=== PATIENT | female | born 1975 | race Caucasian/White ===

== ENCOUNTER → 2016-06-25 | Outpatient (CLI) | payer BC ==
[2016-06-25 18:29] LABS: HEMOGLOBIN 13.5 gm/dl (12.3-15.3); RED BLOOD COUNT 4.49 M/UL (4.00-5.10); WHITE BLOOD COUNT 10.7 K/UL (4.5-11.0)
[2016-06-25 18:45] LABS: BUN/CREATININE RATIO 23 (0-10)
== END ==
LOC: LAB 18:09
PROVIDERS: Specialist/Technologist Athletic Trainer
DX: R10.30 Lower abdominal pain, unspecified (principal)
CPT/HCPCS: 80053; 85025

== ENCOUNTER 2016-08-23 21:05 | Emergency (ER) | payer OTHER ==
[2016-08-23 22:07] LABS: RED BLOOD COUNT 4.61 M/UL (4.00-5.10); WHITE BLOOD COUNT 11.9 K/UL (4.5-11.0)
[2016-08-23 22:41] LABS: BUN/CREATININE RATIO 28 (0-10)
== END 2016-08-24 01:22 | disposition home or self-care (01) ==
LOC: ER1 21:05
PROVIDERS: Emergency Medicine
DX: S13.4XXA Sprain of ligaments of cervical spine, initial encounter (principal); S33.5XXA Sprain of ligaments of lumbar spine, initial encounter; S20.212A Contusion of left front wall of thorax, initial encounter; R10.32 Left lower quadrant pain; E11.9 Type 2 diabetes mellitus without complications; I10 Essential (primary) hypertension; V43.52XA Car driver injured in collision with other type car in traffic accident, initial encounter; Y93.89 Activity, other specified; Y92.410 Unspecified street and highway as the place of occurrence of the external cause
CPT/HCPCS: 36415; 70450; 71260; 72070; 72100; 72125; 80053; 81001; 84484; 84703; 85025; 96361; 96374; 99284; J2405; J7030; J7050; Q9962

== ENCOUNTER 2020-04-06 10:23 | Emergency (ER) | payer BC, OTHER ==
[2020-04-06 11:33] LABS: HEMOGLOBIN 12.2 gm/dl (12.3-15.3); RED BLOOD COUNT 4.5 M/UL (4.00-5.10); WHITE BLOOD COUNT 8.1 K/UL (4.5-11.0)
[2020-04-06 12:01] LABS: BUN/CREATININE RATIO 19 (0-10)
[2020-04-06] MEDS ORDERED: ZOFRAN4 MG PO (13:27)
== END 2020-04-06 13:57 | disposition home or self-care (01) ==
LOC: ER1 10:23
PROVIDERS: Preventive Medicine Occupational Medicine
DX: B34.9 Viral infection, unspecified (principal); I10 Essential (primary) hypertension; E11.9 Type 2 diabetes mellitus without complications; F17.210 Nicotine dependence, cigarettes, uncomplicated; Z20.822 Contact with and (suspected) exposure to COVID-19
CPT/HCPCS: 71045; 80053; 81001; 82009; 82550; 82553; 83605; 83690; 83874; 84484; 85025; 85652; 86140; 87086; 96374; 96375; 99283; J1170; J2405; J7030; U0002

== ENCOUNTER 2020-05-12 20:04 | Emergency (ER) | payer BC, OTHER ==
[~2020-05-12 20:04] MED LIST changes: -TESSALON PERLE100 MG PO; -ZITHROMAX500 MG PO
[2020-05-12] MEDS ORDERED: TESSALON PERLE100 MG PO (21:23)
[2020-05-12] MEDS ORDERED: ZITHROMAX500 MG PO (21:23)
[2020-05-12 21:33] LABS: HEMOGLOBIN 11.3 gm/dl (12.3-15.3); RED BLOOD COUNT 4.31 M/UL (4.00-5.10)
[2020-05-12 21:44] LABS: BUN/CREATININE RATIO 25 (0-10)
[2020-05-12] MEDS ORDERED: ZOFRAN4 MG PO (21:50)
== END 2020-05-12 23:40 | disposition home or self-care (01) ==
LOC: ER1 20:04
PROVIDERS: Physician Assistant
DX: U07.1 COVID-19 (principal); E11.9 Type 2 diabetes mellitus without complications; I10 Essential (primary) hypertension; F17.200 Nicotine dependence, unspecified, uncomplicated
CPT/HCPCS: 71045; 80048; 82550; 82553; 83874; 84484; 85025; 85652; 86140; 96374; 99283; J2405; J7030; M0239

== ENCOUNTER → 2020-05-12 | Outpatient (CLI) | payer BC, OTHER ==
[~2020-05-12] MED LIST: TESSALON PERLE100 MG PO; ZITHROMAX500 MG PO; ZOFRAN4 MG PO
== END ==
LOC: EROP 19:10
DX: U07.1 COVID-19 (principal)
CPT/HCPCS: 87635

== ENCOUNTER → 2020-11-15 | Outpatient (CLI) | payer BC ==
[~2020-11-15] MED LIST changes: +TESSALON PERLE100 MG PO; +ZITHROMAX500 MG PO
[2020-11-16 09:14] LABS: VITAMIN D, 25-HYDROXY 19.6 ng/mL (30.0-100.0)
[2020-11-16 12:14] LABS: RHEUMATOID ARTHRITIS FACTOR <10.0 IU/mL (0.0-13.9)
== END ==
LOC: LAB 12:47
PROVIDERS: Nurse Practitioner Family
DX: M25.50 Pain in unspecified joint (principal); M79.10 Myalgia, unspecified site; R53.83 Other fatigue
CPT/HCPCS: 36415; 82550; 82728; 83520; 85652; 86140; 86200; 86431

== ENCOUNTER 2021-05-23 10:16 | Observation (INO) | payer BC ==
[~2021-05-23] VITALS: Ht 170.2 cm; Wt 74.8 kg
[2021-05-23 10:51] LABS: HEMOGLOBIN 15.9 gm/dl (12.3-15.3); RED BLOOD COUNT 5.11 M/UL (4.00-5.10); WHITE BLOOD COUNT 13.9 K/UL (4.5-11.0)
[2021-05-23 11:25] LABS: BUN/CREATININE RATIO 24 (0-10)
[2021-05-23] MEDS ORDERED: BENTYL 20MG TAB20 MG PO (17:16)
[2021-05-23] MEDS ORDERED: ATORVASTATIN CA10 MG PO (17:16)
[2021-05-23] MEDS ORDERED: ESOMEPRAZOLE MA40 MG PO (17:18)
[2021-05-23] MEDS ORDERED: MELOXICAM15 MG PO (17:18)
[2021-05-23] MEDS ORDERED: GABAPENTIN300 MG PO (17:19)
[2021-05-23] MEDS ORDERED: TIZANIDINE HCL4 MG PO (17:20)
[2021-05-23] MEDS ORDERED: LEVOCETIRIZINE D5 MG PO (17:20)
[2021-05-23] MEDS ORDERED: TRAMADOL HCL50 MG PO (17:21)
[2021-05-23] MEDS ORDERED: NOVOLOG FL100 UNIT/1 SQ (17:23)
[2021-05-23] MEDS ORDERED: LEVEMIR FL100 UNIT/1 SQ (17:23)
[2021-05-23] MEDS ORDERED: SUDAFED 60 MG T60 MG PO (17:24)
[2021-05-24 01:48] LABS: WHITE BLOOD COUNT 13.5 K/UL (4.5-11.0)
[2021-05-24 02:00] LABS: HEMOGLOBIN 13.7 gm/dl (12.3-15.3); RED BLOOD COUNT 4.48 M/UL (4.00-5.10)
[2021-05-24 02:18] LABS: BUN/CREATININE RATIO 25 (0-10)
[2021-05-25 05:56] LABS: HEMOGLOBIN 14.2 gm/dl (12.3-15.3); RED BLOOD COUNT 4.71 M/UL (4.00-5.10); WHITE BLOOD COUNT 14.4 K/UL (4.5-11.0)
[2021-05-25 07:42] LABS: BUN/CREATININE RATIO 32 (0-10)
[2021-05-25] MEDS ORDERED: LISINOPRIL10 MG PO (17:28)
[2021-05-25] MEDS ORDERED: NORVASC10 MG PO (17:28)
== END 2021-05-25 18:55 | disposition home or self-care (01) ==
LOC: ER1 10:16 → CDU 13:52 → CCU 21:09
PROVIDERS: Internal Medicine Cardiovascular Disease; Nurse Practitioner; Physician Assistant; ADMIT Internal Medicine Infectious Disease
DX: R07.89 Other chest pain (principal); R94.39 Abnormal result of other cardiovascular function study; I16.0 Hypertensive urgency; A08.4 Viral intestinal infection, unspecified; E11.65 Type 2 diabetes mellitus with hyperglycemia; K21.9 Gastro-esophageal reflux disease without esophagitis; M19.012 Primary osteoarthritis, left shoulder; M19.011 Primary osteoarthritis, right shoulder; I10 Essential (primary) hypertension; E78.5 Hyperlipidemia, unspecified; F17.290 Nicotine dependence, other tobacco product, uncomplicated; Z98.890 Other specified postprocedural states; Z82.49 Family history of ischemic heart disease and other diseases of the circulatory system; Z79.4 Long term (current) use of insulin; Z79.899 Other long term (current) drug therapy; Z20.822 Contact with and (suspected) exposure to COVID-19
CPT/HCPCS: ECHO; 0240U; 36415; 71045; 78452; 80048; 80053; 81001; 82550; 82553; 82962; 84484; 85025; 85027; 87086; 93005; 93017; 93306; 96374; 96375; 96376; 99152; 99153; 99285; A9502; C1760; C1769; C1887; C1894; C9113; G0378; J0696; J1644; J2250; J2405; J3010; J7030; Q9967

== ENCOUNTER 2021-08-24 12:14 | Emergency (ER) | payer BC ==
[~2021-08-24 12:14] MED LIST changes: +ATORVASTATIN CA10 MG PO; +BENTYL 20MG TAB20 MG PO; +ESOMEPRAZOLE MA40 MG PO; +GABAPENTIN300 MG PO; +LEVEMIR FL100 UNIT/1 SQ; +LEVOCETIRIZINE D5 MG PO; +LISINOPRIL10 MG PO; +MELOXICAM15 MG PO; +NORVASC10 MG PO; +NOVOLOG FL100 UNIT/1 SQ; +SUDAFED 60 MG T60 MG PO; +TIZANIDINE HCL4 MG PO; +TRAMADOL HCL50 MG PO
[2021-08-24 13:10] LABS: HEMOGLOBIN 14.4 gm/dl (12.3-15.3); RED BLOOD COUNT 4.61 M/UL (4.00-5.10); WHITE BLOOD COUNT 13.4 K/UL (4.5-11.0)
[2021-08-24 13:27] LABS: BUN/CREATININE RATIO 15 (0-10)
[2021-08-24] MEDS ORDERED: FLAGYL 250 MG250 MG PO (18:04)
[2021-08-24] MEDS ORDERED: CIPRO500 MG PO (18:04)
== END 2021-08-24 18:28 | disposition home or self-care (01) ==
LOC: ER1 12:14
PROVIDERS: Emergency Medicine
DX: K52.9 Noninfective gastroenteritis and colitis, unspecified (principal); N83.201 Unspecified ovarian cyst, right side; D25.9 Leiomyoma of uterus, unspecified; E11.9 Type 2 diabetes mellitus without complications; E78.5 Hyperlipidemia, unspecified; I10 Essential (primary) hypertension
CPT/HCPCS: 76830; 80053; 81001; 83690; 84703; 85025; 87086; 96374; 96375; 96376; 99284; J1170; J2405; Q9967